=== PATIENT | female | born 1985 | race Caucasian/White ===

== ENCOUNTER → 2017-02-04 | Outpatient (CLI) | payer MEDICARE, OTHER ==
[2016-02-01 09:57] VITALS: BP 140/68
[~2017-02-04] MED LIST: ACET-704 PO; CYCL10TA2 PO; CYCL5TAB PO; DICY20TA3 PO; DICY20TA30 PO; ESOM40CA25 PO; FLUO20CA16 PO; METH5TAB2 PO; MIRT15TA PO; ONDA4TAB7 PO; OXCA600T PO; OXCA600T3 PO; PROM25AM6 IJ; PROM25SU32 PO; QUET200T4 PO; QUET300T5 PO; SUMA1TAB2 PO
--- NOTE | 2017-02-04 10:42 | RAD ---
Ultrasound renal Indication: Hematuria Technique: Grayscale and color Doppler ultrasound images of the kidneys obtained. Comparison: None Findings: Limited study due to body habitus. The cortical thickness is maintained bilaterally. The right kidney measures 10.7 x 4.3 x 6.8 cm without evidence of hydronephrosis. Color Doppler demonstrates evidence of blood flow in the renal hilum. The left kidney measures 10.5 x 3.9 x 4.9 cm without evidence of hydronephrosis. Color Doppler demonstrates evidence of blood flow in the renal hilum. Bladder is nondistended limiting evaluation. Impression: No hydronephrosis or suspicious renal lesion. If concern for nephrolithiasis or renal mass is high, please consider CT abdomen and pelvis.
== END | disposition home or self-care (01) ==
LOC: US 06:56
PROVIDERS: ATTEND Family Medicine
DX: R31.9 Hematuria, unspecified (principal)
CPT/HCPCS: 76770

== ENCOUNTER 2017-07-27 13:04 | Emergency (ER) | payer MEDICARE, OTHER ==
[2017-07-27 13:40] LABS: URINE HCG POC HCG NEGATIVE (Negative)
[2017-07-27] MEDS: IV NORMAL SALINE 1000ML BAG 1,000 ML IV ×2 (14:33)
[2017-07-27] MEDS: HALOPERIDOL LACTATE 5 MG/ML VIAL. IVP ×2 (14:33)
[2017-07-27] MEDS: diphenhydrAMINE 50 MG/ML VIAL IVP ×2 (14:33)
[2017-07-27 14:42] LABS: ADD MAN DIFF? NO
[2017-07-27 14:51] LABS: BASO % 0 % (0-3); EOS % 0 % (0-3); HEMATOCRIT 39.1 % (36.0-47.0); HEMOGLOBIN 13.3 g/dL (12.0-15.5); LYMPH # 1.5 x10^3/uL (1.0-4.8); LYMPH % 14 % (24-48); MEAN CORPUSCULAR HEMOGLOBIN 30 pg (25-35); MEAN CORPUSCULAR HGB CONC 34 g/dL (31-37); MEAN CORPUSCULAR VOLUME 89 fL (79-100); MONO # 0.5 x10^3/uL (0.0-1.1); MONO % 4 % (0-9); NEUT # 8.8 x10^3uL (1.8-7.7); NEUT % 82 % (31-73); PLATELET COUNT 232 x10^3/uL (140-400); RED CELL DISTRIBUTION WIDTH 13.8 % (11.5-14.5); WHITE BLOOD COUNT 10.8 x10^3/uL (4.0-11.0)
[2017-07-27 15:00] LABS: ANION GAP 12 (6-14); BLOOD UREA NITROGEN 13 mg/dL (7-20); BUN/CREATININE RATIO 22 (6-20); CALCIUM 8.9 mg/dL (8.5-10.1); CARBON DIOXIDE 23 mmol/L (21-32); CHLORIDE 101 mmol/L (98-107); CREATININE 0.6 mg/dL (0.6-1.0); GFR 115.1; GLUCOSE 108 mg/dL (70-99); POTASSIUM 3.9 mmol/L (3.5-5.1); SODIUM 136 mmol/L (136-145)
[2017-07-27 15:05] LABS: ALBUMIN/GLOBULIN RATIO 1.1 (1.0-1.7); ALK PHOS 65 U/L (46-116); ALT (SGPT) 20 U/L (14-59); AST (SGOT) 16 U/L (15-37); LIPASE 65 U/L (73-393); TOTAL BILIRUBIN 0.3 mg/dL (0.2-1.0); TOTAL PROTEIN 7.8 g/dL (6.4-8.2)
[2017-07-27 15:46] LABS: BILIRUBIN,URINE SMALL (NEG); CLARITY,URINE CLOUDY; GLUCOSE,URINE NEGATIVE (NEG); NITRITE,URINE NEGATIVE (NEG); PROTEIN,URINE 30 mg/dL (NEG-TRACE)
[2017-07-27 15:58] LABS: AMORPHOUS SEDIMENT,UR PRESENT /HPF; COLOR,URINE DK YELLOW
[2017-07-27 16:05] LABS: BACTERIA,URINE FEW /HPF (0-FEW); RBC,URINE OCC /HPF (0-2); SQUAMOUS EPITHELIAL CELL,UR MOD /LPF; WBC,URINE OCC /HPF (0-4)
[2017-07-27] MEDS: fentaNYL PF VIAL 100 MCG/2 ML VIAL IV ×2 (16:45)
[2017-07-27] MEDS: ONDANSETRON PF 4 MG/2 ML VIAL. IV ×2 (16:45)
== END 2017-07-27 18:40 | disposition home or self-care (01) ==
LOC: ER 13:04
DX: R10.30 Lower abdominal pain, unspecified (principal); G89.29 Other chronic pain; K21.9 Gastro-esophageal reflux disease without esophagitis; F41.9 Anxiety disorder, unspecified; G43.909 Migraine, unspecified, not intractable, without status migrainosus; F42.9 Obsessive-compulsive disorder, unspecified; Z90.49 Acquired absence of other specified parts of digestive tract; Z88.6 Allergy status to analgesic agent; Z88.1 Allergy status to other antibiotic agents; Z91.048 Other nonmedicinal substance allergy status
CPT/HCPCS: 36415; 76830; 76856; 80053; 81001; 81025; 83690; 85025; 87086; 96361; 96374; 96375; 99285-25; J1200; J1630; J2405; J3010; J7030

== ENCOUNTER 2017-08-08 17:59 | Emergency (ER) | payer MEDICARE, OTHER ==
[2017-08-08] MEDS: ACETAMINOPHEN/CODEINE 300/30MG TABLET. PO ×2 (18:28)
[2017-08-08] MEDS: DIPHTH,PERTUSS(ACELL),TET TOX 0.5 ML DISP.SYRIN. VAX IM ×2 (18:39)
== END 2017-08-08 18:42 | disposition home or self-care (01) ==
LOC: ER 17:59
DX: S61.431A Puncture wound without foreign body of right hand, initial encounter (principal); F41.9 Anxiety disorder, unspecified; F31.9 Bipolar disorder, unspecified; K21.9 Gastro-esophageal reflux disease without esophagitis; G43.909 Migraine, unspecified, not intractable, without status migrainosus; G89.29 Other chronic pain; K58.9 Irritable bowel syndrome, unspecified; F42.8 Other obsessive-compulsive disorder; Z90.49 Acquired absence of other specified parts of digestive tract; Z88.1 Allergy status to other antibiotic agents; Z88.6 Allergy status to analgesic agent; Z91.048 Other nonmedicinal substance allergy status; W45.0XXA Nail entering through skin, initial encounter; Y93.E5 Activity, floor mopping and cleaning; Y92.89 Other specified places as the place of occurrence of the external cause; Y99.8 Other external cause status
CPT/HCPCS: 73130; 90471; 90715; 99284-25

== ENCOUNTER → 2017-09-01 | Outpatient (CLI) | payer MEDICARE, OTHER | END | disposition home or self-care (01) | LOC: KCIC US 09:57 | DX: N63.10 Unspecified lump in the right breast, unspecified quadrant (principal) | CPT/HCPCS: 76641 ==

== ENCOUNTER 2019-03-09 10:16 | Inpatient (IN) | payer MEDICARE, OTHER ==
[~2019-03-09] VITALS: Ht 162.6 cm; Wt 99.8 kg
[~2019-03-09 10:16] MED LIST changes: +CEPH500T PO; +HYDR-3164 PO; -OXCA600T PO; +OXCA600T9 PO
[2019-03-09 11:00] VITALS: BP 134/76
[2019-03-09] MEDS ORDERED: MORPHINE SULFATE 10 MG/ML VIAL. IV ONE (11:00)
[2019-03-09] MEDS ORDERED: IV NORMAL SALINE 1000ML BAG 1,000 ML IV SCH (11:00)
[2019-03-09] MEDS ORDERED: ONDANSETRON PF 4 MG/2 ML VIAL. IV PRN (11:00)
[2019-03-09] MEDS ORDERED: ESOM40CA PO (11:32)
[2019-03-09] MEDS ORDERED: CYCL10TA2 PO (11:32)
[2019-03-09] MEDS ORDERED: ZOLP5TAB PO (11:32)
[2019-03-09 12:42] LABS: BASO % 0 % (0-3); EOS # 0.1 x10^3/uL (0.0-0.7); EOS % 1 % (0-3); HEMATOCRIT 34.4 % (36.0-47.0); HEMOGLOBIN 11.8 g/dL (12.0-15.5); LYMPH # 2.1 x10^3/uL (1.0-4.8); LYMPH % 24 % (24-48); MEAN CORPUSCULAR HEMOGLOBIN 29 pg (25-35); MEAN CORPUSCULAR HGB CONC 34 g/dL (31-37); MEAN CORPUSCULAR VOLUME 85 fL (79-100); MONO # 0.4 x10^3/uL (0.0-1.1); MONO % 5 % (0-9); NEUT # 6.1 x10^3/uL (1.8-7.7); NEUT % 69 % (31-73); PLATELET COUNT 215 x10^3/uL (140-400); RED BLOOD COUNT 4.08 x10^6/uL (3.50-5.40); RED CELL DISTRIBUTION WIDTH 13.8 % (11.5-14.5); WHITE BLOOD COUNT 8.8 x10^3/uL (4.0-11.0)
[2019-03-09] MEDS: IV NORMAL SALINE 1000ML BAG 1,000 ML IV SCH ×2 (12:44→22:23)
[2019-03-09] MEDS: PIPERACILLIN/TAZOBACTAM 4.5 GM in IV NORMAL SALINE 100ML 100 ML IV SCH ×2 (12:45→17:21)
[2019-03-09 13:04] LABS: ALBUMIN 3.4 g/dL (3.4-5.0); ALBUMIN/GLOBULIN RATIO 0.8 (1.0-1.7); CALCIUM 9.1 mg/dL (8.5-10.1); CREATININE 0.7 mg/dL (0.6-1.0); GFR 95.8; POTASSIUM 3.6 mmol/L (3.5-5.1); TOTAL BILIRUBIN 0.2 mg/dL (0.2-1.0); TOTAL PROTEIN 7.5 g/dL (6.4-8.2)
--- NOTE | 2019-03-09 13:34 | PDOC1 ---
H & P. HPI: Ms. Cat is a 33 yo female with PMH of Bipolar, irritable bowel syndrome, chronic pain, currently on methadone for maintenance, GERD and nicotine dependence, who presented to clinic today for 2-3 day history of RUQ pain, fever, chills, nausea, decreased appetite. Tmax was 101 on 03/07/19. She notes that pain is dull, intermittently much more severe, worsened by eating, improved by avoiding food. Seems colicky in nature, radiates around to the back. She denies diarrhea, vomiting, dysuria, hematura, cough. Pain is 5/10 usually and becomes 10/10 at times. ROS: Constitutional: Admits fever, fatigue, chills HEENT: Denies sore throat, vision changes Cardio: Denies chest pain, dyspnea with exertion, syncope, palpitations, edema Pulmonary: Denies shortness of breath, cough, wheezing GI: Admits RUQ pain, nausea, denies vomiting, diarrhea, constipation : Denies dysuria, frequency, urgency, incontinence, hematuria Skin: Denies new lesions Neuro: Denies weakness, paresthesias PMH: As above FAMILY HX: Patient is adopted. SOCIAL HX: Long time smoker. Denies alcohol and recreational drug use. Takes methadone. SURGICAL HX: s/p appendectomy MEDS: Reviewed and reconciled ALLERGIES: Reviewed PE: Alert, oriented, appears in pain EOMI, sclera non-icteric Neck supple RRR, no murmur CTAB, no wheezes, crackles or rhonchi Soft, tender in RUQ, + ramsey's sign, some tenderness in epigastrium as well, otherwise nontender, ND, diminished bowel sounds, no rebound, guarding. No edema, cyanosis. Normal capillary refill. Calm, cooperative, mood/affect within normal limits ASSESSMENT & PLAN: RUQ abdominal pain Fever Bipolar disorder IBS Chronic pain, on methadone chronically GERD Nicotine dependence Get labs, imaging, surgery consult for possible acute cholecystitis IVFs NPO pending work up Pain control DEMETRI Copeland MD Mar 09, 2019 13:34
[2019-03-09 14:03] LABS: BILIRUBIN,URINE NEGATIVE (NEG); CLARITY,URINE CLEAR; COLOR,URINE AMBER; NITRITE,URINE NEGATIVE (NEG); PROTEIN,URINE NEGATIVE (NEG-TRACE); UROBILINOGEN,URINE 0.2 mg/dL (0.2 mg/dL)
[2019-03-09 14:24] LABS: AMORPHOUS SEDIMENT,UR PRESENT /HPF; BACTERIA,URINE 0 /HPF (0-FEW); SQUAMOUS EPITHELIAL CELL,UR MOD /LPF
[2019-03-09 14:25] LABS: U PREG PATIENT NEGATIVE (NEG)
[2019-03-09] MEDS ORDERED: IOHEXOL 300 MG/ML 100ML VIAL. IV ONE (14:30)
[2019-03-09] MEDS ORDERED: IOHEXOL 240 MG/ML 50ML VIAL. PO ONE (14:30)
[2019-03-09] MEDS ORDERED: CONTRAST GIVEN. MC PRN (14:45)
--- NOTE | 2019-03-09 14:52 | NUR ---
Discharge Note: ELISABETH SEGOVIA [facility] Discharge instructions and discharge home medications reviewed with Patient and a copy given. All questions have been answered and understanding verbalized. The following instructions and handouts were given: Patient given education regarding new medication. Discontinued lines and drains: Iv removed per protocol. Patient discharged home via cab pass. Addendum: 03/09/19 at 1453 by MAR PATEL RN disregard previous note. Wrong patient.
[2019-03-09 15:00] VITALS: BP 130/82
[2019-03-09] MEDS: MORPHINE SULFATE 10 MG/ML VIAL. IV PRN ×3 (15:27→23:49)
--- NOTE | 2019-03-09 16:42 | RAD ---
Examination: CT ABD PELV W/ORAL IV CONTRAST History: Abdominal pain Comparison/Correlation: 09/12/2013 CT abdomen and pelvis with contrast Findings: Axial images of the abdomen and pelvis were obtained following IV and oral contrast. Mild bibasilar linear atelectasis is present. Liver is unremarkable. Spleen is unremarkable. Adrenal glands are normal. Kidneys unremarkable. Pancreas is unremarkable. Multiple small calculi present within the gallbladder. Large quantity of stool is present in the colon. No extraluminal gas. No inflammatory change about the cecum. Surgical clips and suture material about the cecum noted. Appendix is not delineated. Correlate with surgical history. No ascites or pelvic free fluid. Uterus is unremarkable. Urinary bladder is unremarkable. Few mesenteric lymph nodes are suggestive but not enlarged. Impression: No obstruction or acute inflammatory process. Cholelithiasis. Large quantity of stool in the colon. PQRS Compliance Statement: One or more of the following individualized dose reduction techniques were utilized for this examination: 1. Automated exposure control 2. Adjustment of the mA and/or kV according to patient size 3. Use of iterative reconstruction technique Electronically signed by: Sunny Sims MD (03/09/2019 4:38 PM) [facility]
--- NOTE | 2019-03-09 17:03 | PDOC2 ---
CONSULT Date of Consult Date of Consult DATE: 03/09/19 TIME: 16:56 Reason for Consult Reason for Consult: possible cholecystitis Referring Physician Referring Physician: Dr Benitez Identification/Chief Complaint Chief Complaint RUQ pain Source Source: Chart review, Patient History of Present Illness Reason for Visit: Ms Cat is a 33 yo female smoker with hx of IBD and some constipation. The last few days she has had RUQ pain with fever. We are asked to see her for possible acute cholecystitis Past Medical History GI: GERD, Irritable bowel disease Psych: Bipolar Past Surgical History Past Surgical History: Appendectomy, Other (l/s for ovarian cysts) Family History Family History: Adopted Social History 1 pack per day ALCOHOL: none Drugs: None Current Medications Current Medications Current Medications Ondansetron HCl (Zofran) 4 mg PRN Q6HRS PRN IV NAUSEA/VOMITING Last administered on 03/09/19 15:26; Start 03/09/19 at 11:00 Morphine Sulfate (Morphine Sulfate) 5 mg PRN Q3HRS ONCE IV Last administered on 03/09/19at 12:44; Start 03/09/19 at 11:00; Stop 03/09/19 at 11:09; Status DC Piperacillin Sod/ Tazobactam Sod 4.5 gm/Sodium Chloride 100 ml @ 200 mls/hr Q6HRS IV Last administered on 03/09/19at 12:45; Start 03/09/19 at 12:00 Sodium Chloride 1,000 ml @ 125 mls/hr 1X IV ; Start 03/09/19 at 11:00; Status Cancel Morphine Sulfate (Morphine Sulfate) 5 mg PRN Q3HRS PRN IV PAIN Last administered on 03/09/19at 15:27; Start 03/09/19 at 11:45 Sodium Chloride 1,000 ml @ 125 mls/hr Q8H IV Last administered on 03/09/19 12:44; Start 03/09/19 at 11:45 Iohexol (Omnipaque 240 Mg/ml) 30 ml 1X ONCE PO Last administered on 03/09/19at 14:30; Start 03/09/19 at 14:30; Stop 03/09/19 at 14:38; Status DC Iohexol (Omnipaque 300 Mg/ml) 75 ml 1X ONCE IV Last administered on 03/09/19at 14:30; Start 03/09/19 at 14:30; Stop 03/09/19 at 14:38; Status DC Info (CONTRAST GIVEN -- Rx MONITORING) 1 each PRN DAILY PRN MC SEE COMMENTS; Start 03/09/19 at 14:45; Stop 03/11/19 at 14:44 Methadone HCl (Dolophine) 125 mg HS PO ; Start 03/09/19 at 21:00; Status UNV Nicotine (Nicoderm Cq 21mg) 1 patch DAILY TD ; Start 03/09/19 at 17:00 Active Scripts Active Reported Nexium Capsule (Esomeprazole Magnesium) 40 Mg Capsule.dr 44 Mg PO DAILYAC Cyclobenzaprine Hcl 10 Mg Tablet 1 Tab PO TID PRN Ambien (Zolpidem Tartrate) 5 Mg Tablet 5 Mg PO HS PRN Prozac (Fluoxetine Hcl) 20 Mg Capsule 2 Cap PO DAILY Phenergan (Promethazine HCl) 25 Mg Supp.rect 25 Mg PO TID Zofran (Ondansetron Hcl) 4 Mg Tablet 1 Tab PO TID Methadone Hcl 5 Mg Tablet 125 Mg PO HS Seroquel (Quetiapine Fumarate) 300 Mg Tablet 1 Tab PO DAILYWLUN Trileptal (Oxcarbazepine) 600 Mg Tablet 2 Tab PO HS Dicyclomine Hcl 20 Mg Tablet 1 Tab PO TID Allergies Allergies: Coded Allergies: doxycycline (Verified Allergy, Intermediate, NAUSEA, VOMITING, 09/12/13) ibuprofen (Verified Allergy, Intermediate, nose bleed, 07/16/14) adhesive (Verified Allergy, Mild, rash, 03/09/19) Patient states not a problem unless left on for a long period of time. ROS General: YES: Chills, Other (fever) Gastrointestinal: Yes Nausea, Yes Abdominal Pain, Yes Constipation Physical Exam General: Alert, No acute distress HEENT: Atraumatic Lungs: Normal air movement Heart: Regular rate Abdomen: Soft, Other (minimally TTP in the RUQ) Skin: Other (warm, dry) Neuro: Other (tremor) Vitals VITALS Vital Signs Date Time Temp Pulse Resp B/P (MAP) Pulse Ox O2 Delivery O2 Flow Rate FiO2 03/09/19 15:57 Room Air 03/09/19 11:00 98.2 106 18 134/76 (95) 98 98.2 Labs Labs Laboratory Tests Test 03/09/19 12:03/09/19 12:45 White Blood Count 8.8 x10^3/uL (4.0-11.0) Red Blood Count 4.08 x10^6/uL (3.50-5.40) Hemoglobin 11.8 g/dL (12.0-15.5) Hematocrit 34.4 % (36.0-47.0) Mean Corpuscular Volume 85 fL (79-100) Mean Corpuscular Hemoglobin 29 pg (25-35) Mean Corpuscular Hemoglobin Concent 34 g/dL (31-37) Red Cell Distribution Width 13.8 % (11.5-14.5) Platelet Count 215 x10^3/uL (140-400) Neutrophils (%) (Auto) 69 % (31-73) Lymphocytes (%) (Auto) 24 % (24-48) Monocytes (%) (Auto) 5 % (0-9) Eosinophils (%) (Auto) 1 % (0-3) Basophils (%) (Auto) 0 % (0-3) Neutrophils # (Auto) 6.1 x10^3/uL (1.8-7.7) Lymphocytes # (Auto) 2.1 x10^3/uL (1.0-4.8) Monocytes # (Auto) 0.4 x10^3/uL (0.0-1.1) Eosinophils # (Auto) 0.1 x10^3/uL (0.0-0.7) Basophils # (Auto) 0.0 x10^3/uL (0.0-0.2) Sodium Level 137 mmol/L (136-145) Potassium Level 3.6 mmol/L (3.5-5.1) Chloride Level 104 mmol/L (98-107) Carbon Dioxide Level 22 mmol/L (21-32) Anion Gap 11 (6-14) Blood Urea Nitrogen 7 mg/dL (7-20) Creatinine 0.7 mg/dL (0.6-1.0) Estimated GFR (Cockcroft-Gault) 95.8 BUN/Creatinine Ratio 10 (6-20) Glucose Level 87 mg/dL (70-99) Calcium Level 9.1 mg/dL (8.5-10.1) Total Bilirubin 0.2 mg/dL (0.2-1.0) Aspartate Amino Transf (AST/SGOT) 17 U/L (15-37) Alanine Aminotransferase (ALT/SGPT) 19 U/L (14-59) Alkaline Phosphatase 84 U/L (46-116) Total Protein 7.5 g/dL (6.4-8.2) Albumin 3.4 g/dL (3.4-5.0) Albumin/Globulin Ratio 0.8 (1.0-1.7) Lipase 49 U/L (73-393) Urine Collection Type Unknown Urine Color Janell Urine Clarity Clear Urine pH 6.0 Urine Specific [place] >=1.030 Urine Protein Negative mg/dL (NEG-TRACE) Urine Glucose (UA) Negative mg/dL (NEG) Urine Ketones (Stick) Negative mg/dL (NEG) Urine Blood Negative (NEG) Urine Nitrite Negative (NEG) Urine Bilirubin Negative (NEG) Urine Urobilinogen Dipstick 0.2 mg/dL (0.2 mg/dL) Urine Leukocyte Esterase Negative (NEG) Urine RBC 1-2 /HPF (0-2) Urine WBC 1-4 /HPF (0-4) Urine Squamous Epithelial Cells Mod /LPF Urine Amorphous Sediment Present /HPF Urine Bacteria 0 /HPF (0-FEW) Urine Mucus Marked /LPF Urine Test Negative (NEG) Laboratory Tests Test 03/09/19 12:09 03/09/19 12:45 White Blood Count 8.8 x10^3/uL (4.0-11.0) Red Blood Count 4.08 x10^6/uL (3.50-5.40) Hemoglobin 11.8 g/dL (12.0-15.5) Hematocrit 34.4 % (36.0-47.0) Mean Corpuscular Volume 85 fL (79-100) Mean Corpuscular Hemoglobin 29 pg (25-35) Mean Corpuscular Hemoglobin Concent 34 g/dL (31-37) Red Cell Distribution Width 13.8 % (11.5-14.5) Platelet Count 215 x10^3/uL (140-400) Neutrophils (%) (Auto) 69 % (31-73) Lymphocytes (%) (Auto) 24 % (24-48) Monocytes (%) (Auto) 5 % (0-9) Eosinophils (%) (Auto) 1 % (0-3) Basophils (%) (Auto) 0 % (0-3) Neutrophils # (Auto) 6.1 x10^3/uL (1.8-7.7) Lymphocytes # (Auto) 2.1 x10^3/uL (1.0-4.8) Monocytes # (Auto) 0.4 x10^3/uL (0.0-1.1) Eosinophils # (Auto) 0.1 x10^3/uL (0.0-0.7) Basophils # (Auto) 0.0 x10^3/uL (0.0-0.2) Sodium Level 137 mmol/L (136-145) Potassium Level 3.6 mmol/L (3.5-5.1) Chloride Level 104 mmol/L (98-107) Carbon Dioxide Level 22 mmol/L (21-32) Anion Gap 11 (6-14) Blood Urea Nitrogen 7 mg/dL (7-20) Creatinine 0.7 mg/dL (0.6-1.0) Estimated GFR (Cockcroft-Gault) 95.8 BUN/Creatinine Ratio 10 (6-20) Glucose Level 87 mg/dL (70-99) Calcium Level 9.1 mg/dL (8.5-10.1) Total Bilirubin 0.2 mg/dL (0.2-1.0) Aspartate Amino Transf (AST/SGOT) 17 U/L (15-37) Alanine Aminotransferase (ALT/SGPT) 19 U/L (14-59) Alkaline Phosphatase 84 U/L (46-116) Total Protein 7.5 g/dL (6.4-8.2) Albumin 3.4 g/dL (3.4-5.0) Albumin/Globulin Ratio 0.8 (1.0-1.7) Lipase 49 U/L (73-393) Urine Collection Type Unknown Urine Color Janell Urine Clarity Clear Urine pH 6.0 Urine Specific [place] >=1.030 Urine Protein Negative mg/dL (NEG-TRACE) Urine Glucose (UA) Negative mg/dL (NEG) Urine Ketones (Stick) Negative mg/dL (NEG) Urine Blood Negative (NEG) Urine Nitrite Negative (NEG) Urine Bilirubin Negative (NEG) Urine Urobilinogen Dipstick 0.2 mg/dL (0.2 mg/dL) Urine Leukocyte Esterase Negative (NEG) Urine RBC 1-2 /HPF (0-2) Urine WBC 1-4 /HPF (0-4) Urine Squamous Epithelial Cells Mod /LPF Urine Amorphous Sediment Present /HPF Urine Bacteria 0 /HPF (0-FEW) Urine Mucus Marked /LPF Urine Test Negative (NEG) Images Images CT scan just done reviewed with the radiologist Assessment/Plan Assessment/Plan RUQ pain, a little better BIPOLAR GERD IBD with constipation tobacco abuse chronic pain on methadone clears tonoc til midnight then NPO for a HIDA scan in the morning further surg recs PND those results will follow with you Thanks for consult BERNABE ALARCON MD Mar 09, 2019 17:03
[2019-03-09] MEDS: NICOTINE 21MG PATCH. TD SCH (17:21)
[2019-03-09 19:00] VITALS: BP 113/71
[2019-03-09] MEDS: METHADONE (DAILY MAINT DOSE) 100 MG/100 ML SOLUTION PO SCH (21:35)
[2019-03-09 23:00] VITALS: BP 106/68
[2019-03-10] MEDS: PIPERACILLIN/TAZOBACTAM 4.5 GM in IV NORMAL SALINE 100ML 100 ML IV SCH ×4 (00:27→17:49)
[2019-03-10 03:00] VITALS: BP 119/65
[2019-03-10] MEDS: MORPHINE SULFATE 10 MG/ML VIAL. IV PRN (05:20)
[2019-03-10 07:00] VITALS: BP 114/75
[2019-03-10] MEDS: fentaNYL PF VIAL 100 MCG/2 ML VIAL IV PRN ×3 (08:43→20:46)
[2019-03-10] MEDS: IV NORMAL SALINE 1000ML BAG 1,000 ML IV SCH ×3 (08:48→20:44)
[2019-03-10] MEDS: NICOTINE 21MG PATCH. TD SCH (08:51)
--- NOTE | 2019-03-10 09:07 | PDOC ---
SUBJECTIVE Subjective Still having pain. Getting HIDA today. OBJECTIVE Objective Reviewe.d Vital Signs Vital Signs Date Time Temp Pulse Resp B/P (MAP) Pulse Ox O2 Delivery O2 Flow Rate FiO2 03/10/19 08:43 19 94 Room Air 03/10/19 07:00 98.0 76 18 114/75 (88) 97 Room Air 98.0 03/10/19 05:20 20 Room Air 03/10/19 03:00 97.8 79 20 119/65 (83) 97 Room Air 97.8 03/10/19 00:19 20 Room Air 03/09/19 23:49 20 Room Air 03/09/19 23:00 97.9 91 20 106/68 (81) 96 Room Air 97.9 03/09/19 20:00 Room Air 03/09/19 19:56 20 Room Air 03/09/19 19:26 Room Air 03/09/19 19:00 97.9 83 20 113/71 (85) 96 Room Air 97.9 03/09/19 15:57 Room Air 03/09/19 15:27 Room Air 03/09/19 15:00 97.9 81 18 130/82 (98) 99 Room Air 97.9 03/09/19 13:14 Room Air 03/09/19 12:44 Room Air 03/09/19 12:17 Room Air 03/09/19 11:00 98.2 106 18 134/76 (95) 98 Room Air 98.2 I & O Intake and Output 03/10/19 07:00 Intake Total 400 ml Balance 400 ml Intake Oral 200 ml IV Total 200 ml # Voids 3 PHYSICAL EXAM Physical Exam Alert, oriented, appears in pain EOMI, sclera non-icteric Neck supple RRR, no murmur CTAB, no wheezes, crackles or rhonchi Soft, tender in RUQ, + ramsey's sign No edema, cyanosis. Normal capillary refill. Calm, cooperative, mood/affect within normal limits ASSESSMENT/PLAN Assessment/Plan RUQ abdominal pain, gallstones on CT Fever prior to admission Bipolar disorder IBS Chronic pain, on methadone chronically GERD Nicotine dependence Plan for HIDA today Cont zosyn until bld cx neg COMMENT Lab Laboratory Tests Test 03/09/19 12:09 03/09/19 12:45 White Blood Count 8.8 x10^3/uL (4.0-11.0) Red Blood Count 4.08 x10^6/uL (3.50-5.40) Hemoglobin 11.8 g/dL (12.0-15.5) Hematocrit 34.4 % (36.0-47.0) Mean Corpuscular Volume 85 fL (79-100) Mean Corpuscular Hemoglobin 29 pg (25-35) Mean Corpuscular Hemoglobin Concent 34 g/dL (31-37) Red Cell Distribution Width 13.8 % (11.5-14.5) Platelet Count 215 x10^3/uL (140-400) Neutrophils (%) (Auto) 69 % (31-73) Lymphocytes (%) (Auto) 24 % (24-48) Monocytes (%) (Auto) 5 % (0-9) Eosinophils (%) (Auto) 1 % (0-3) Basophils (%) (Auto) 0 % (0-3) Neutrophils # (Auto) 6.1 x10^3/uL (1.8-7.7) Lymphocytes # (Auto) 2.1 x10^3/uL (1.0-4.8) Monocytes # (Auto) 0.4 x10^3/uL (0.0-1.1) Eosinophils # (Auto) 0.1 x10^3/uL (0.0-0.7) Basophils # (Auto) 0.0 x10^3/uL (0.0-0.2) Sodium Level 137 mmol/L (136-145) Potassium Level 3.6 mmol/L (3.5-5.1) Chloride Level 104 mmol/L (98-107) Carbon Dioxide Level 22 mmol/L (21-32) Anion Gap 11 (6-14) Blood Urea Nitrogen 7 mg/dL (7-20) Creatinine 0.7 mg/dL (0.6-1.0) Estimated GFR (Cockcroft-Gault) 95.8 BUN/Creatinine Ratio 10 (6-20) Glucose Level 87 mg/dL (70-99) Calcium Level 9.1 mg/dL (8.5-10.1) Total Bilirubin 0.2 mg/dL (0.2-1.0) Aspartate Amino Transf (AST/SGOT) 17 U/L (15-37) Alanine Aminotransferase (ALT/SGPT) 19 U/L (14-59) Alkaline Phosphatase 84 U/L (46-116) Total Protein 7.5 g/dL (6.4-8.2) Albumin 3.4 g/dL (3.4-5.0) Albumin/Globulin Ratio 0.8 (1.0-1.7) Lipase 49 U/L (73-393) Urine Collection Type Unknown Urine Color Janell Urine Clarity Clear Urine pH 6.0 Urine Specific [place] >=1.030 Urine Protein Negative mg/dL (NEG-TRACE) Urine Glucose (UA) Negative mg/dL (NEG) Urine Ketones (Stick) Negative mg/dL (NEG) Urine Blood Negative (NEG) Urine Nitrite Negative (NEG) Urine Bilirubin Negative (NEG) Urine Urobilinogen Dipstick 0.2 mg/dL (0.2 mg/dL) Urine Leukocyte Esterase Negative (NEG) Urine RBC 1-2 /HPF (0-2) Urine WBC 1-4 /HPF (0-4) Urine Squamous Epithelial Cells Mod /LPF Urine Amorphous Sediment Present /HPF Urine Bacteria 0 /HPF (0-FEW) Urine Mucus Marked /LPF Urine Test Negative (NEG) DEMETRI CALDERÓN MD Mar 10, 2019 09:07
[2019-03-10 11:00] VITALS: BP 144/94
--- NOTE | 2019-03-10 12:54 | PDOC ---
SURGICAL PROGRESS NOTE Subjective main complaint is MYLES no emesis pain is better today Vital Signs Vital Signs Date Time Temp Pulse Resp B/P (MAP) Pulse Ox O2 Delivery O2 Flow Rate FiO2 03/10/19 11:00 97.9 91 20 144/94 (111) 95 Room Air 97.9 I&O Intake and Output 03/10/19 06:59 Intake Total 400 ml Balance 400 ml Intake Oral 200 ml IV Total 200 ml # Voids 3 General: Alert, Oriented X3, Cooperative, No acute distress Abdomen: Soft, No tenderness Labs Laboratory Tests Test 03/09/19 12:09 03/09/19 12:45 White Blood Count 8.8 x10^3/uL (4.0-11.0) Red Blood Count 4.08 x10^6/uL (3.50-5.40) Hemoglobin 11.8 g/dL (12.0-15.5) Hematocrit 34.4 % (36.0-47.0) Mean Corpuscular Volume 85 fL (79-100) Mean Corpuscular Hemoglobin 29 pg (25-35) Mean Corpuscular Hemoglobin Concent 34 g/dL (31-37) Red Cell Distribution Width 13.8 % (11.5-14.5) Platelet Count 215 x10^3/uL (140-400) Neutrophils (%) (Auto) 69 % (31-73) Lymphocytes (%) (Auto) 24 % (24-48) Monocytes (%) (Auto) 5 % (0-9) Eosinophils (%) (Auto) 1 % (0-3) Basophils (%) (Auto) 0 % (0-3) Neutrophils # (Auto) 6.1 x10^3/uL (1.8-7.7) Lymphocytes # (Auto) 2.1 x10^3/uL (1.0-4.8) Monocytes # (Auto) 0.4 x10^3/uL (0.0-1.1) Eosinophils # (Auto) 0.1 x10^3/uL (0.0-0.7) Basophils # (Auto) 0.0 x10^3/uL (0.0-0.2) Sodium Level 137 mmol/L (136-145) Potassium Level 3.6 mmol/L (3.5-5.1) Chloride Level 104 mmol/L (98-107) Carbon Dioxide Level 22 mmol/L (21-32) Anion Gap 11 (6-14) Blood Urea Nitrogen 7 mg/dL (7-20) Creatinine 0.7 mg/dL (0.6-1.0) Estimated GFR (Cockcroft-Gault) 95.8 BUN/Creatinine Ratio 10 (6-20) Glucose Level 87 mg/dL (70-99) Calcium Level 9.1 mg/dL (8.5-10.1) Total Bilirubin 0.2 mg/dL (0.2-1.0) Aspartate Amino Transf (AST/SGOT) 17 U/L (15-37) Alanine Aminotransferase (ALT/SGPT) 19 U/L (14-59) Alkaline Phosphatase 84 U/L (46-116) Total Protein 7.5 g/dL (6.4-8.2) Albumin 3.4 g/dL (3.4-5.0) Albumin/Globulin Ratio 0.8 (1.0-1.7) Lipase 49 U/L (73-393) Urine Collection Type Unknown Urine Color Janell Urine Clarity Clear Urine pH 6.0 Urine Specific [place] >=1.030 Urine Protein Negative mg/dL (NEG-TRACE) Urine Glucose (UA) Negative mg/dL (NEG) Urine Ketones (Stick) Negative mg/dL (NEG) Urine Blood Negative (NEG) Urine Nitrite Negative (NEG) Urine Bilirubin Negative (NEG) Urine Urobilinogen Dipstick 0.2 mg/dL (0.2 mg/dL) Urine Leukocyte Esterase Negative (NEG) Urine RBC 1-2 /HPF (0-2) Urine WBC 1-4 /HPF (0-4) Urine Squamous Epithelial Cells Mod /LPF Urine Amorphous Sediment Present /HPF Urine Bacteria 0 /HPF (0-FEW) Urine Mucus Marked /LPF Urine Test Negative (NEG) Problem List await HIDA results TEO STALLWORTH APRN Mar 10, 2019 12:54
[2019-03-10] MEDS ORDERED: ZOLPIDEM 5 MG TABLET. PO PRN (13:45)
[2019-03-10] MEDS ORDERED: CYCLOBENZAPRINE 10 MG TABLET. PO PRN (13:45)
[2019-03-10] MEDS ORDERED: PROMETHAZINE 25 MG SUPP.RECT. RC PRN (13:45)
[2019-03-10] MEDS ORDERED: QUEtiapine 100 MG TABLET. PO SCH (14:00)
[2019-03-10 15:00] VITALS: BP 136/87
[2019-03-10] MEDS: PANTOPRAZOLE 40 MG TABLET.DR. PO SCH (16:30)
[2019-03-10] MEDS: ONDANSETRON ODT 4 MG TAB.RAPDIS. PO SCH ×2 (16:30→20:47)
[2019-03-10] MEDS: FLUoxetine HCL 20 MG CAPSULE PO SCH (16:31)
[2019-03-10] MEDS: DICYCLOMINE HCL 10 MG CAPSULE PO SCH ×2 (16:31→20:46)
[2019-03-10 19:00] VITALS: BP 130/82
[2019-03-10] MEDS: METHADONE (DAILY MAINT DOSE) 100 MG/100 ML SOLUTION PO SCH (20:52)
[2019-03-10] MEDS ORDERED: OXcarbazepine 300 MG TABLET PO SCH (21:00)
[2019-03-10 23:00] VITALS: BP 99/66
[2019-03-11] MEDS: PIPERACILLIN/TAZOBACTAM 4.5 GM in IV NORMAL SALINE 100ML 100 ML IV SCH ×2 (00:03→05:55)
[2019-03-11 03:05] VITALS: BP 122/78
[2019-03-11] MEDS: fentaNYL PF VIAL 100 MCG/2 ML VIAL IV PRN ×2 (03:21→07:58)
[2019-03-11] MEDS: IV NORMAL SALINE 1000ML BAG 1,000 ML IV SCH (05:55)
[2019-03-11 07:00] VITALS: BP 139/87
--- NOTE | 2019-03-11 08:15 | PDOC ---
SUBJECTIVE Subjective Still having pain. HIDA results pending. OBJECTIVE Objective Reviewed. Vital Signs Vital Signs Date Time Temp Pulse Resp B/P (MAP) Pulse Ox O2 Delivery O2 Flow Rate FiO2 03/11/19 07:58 Room Air 03/11/19 07:00 98.1 91 18 139/87 (104) 99 Room Air 98.1 03/11/19 04:02 Room Air 03/11/19 03:21 Room Air 03/11/19 03:05 97.7 90 18 122/78 (93) 100 Room Air 97.7 03/10/19 23:00 97.9 81 18 99/66 (77) 95 Room Air 97.9 03/10/19 21:18 Room Air 03/10/19 20:46 Room Air 03/10/19 20:00 Room Air 03/10/19 19:00 98.1 84 18 130/82 (98) 97 Room Air 98.1 03/10/19 17:20 20 92 Room Air 03/10/19 16:44 20 94 Room Air 03/10/19 15:00 98.0 84 18 136/87 (103) 99 Room Air 98.0 03/10/19 11:00 97.9 91 20 144/94 (111) 95 Room Air 97.9 03/10/19 09:15 19 94 Room Air 03/10/19 08:43 19 94 Room Air I & O Intake and Output 03/11/19 07:00 Intake Total 550 ml Output Total 1700 ml Balance -1150 ml Intake Oral 550 ml Output Urine Total 1700 ml PHYSICAL EXAM Physical Exam Alert, oriented, appears in pain EOMI, sclera non-icteric Neck supple RRR, no murmur CTAB, no wheezes, crackles or rhonchi Soft, tender in RUQ, + ramsey's sign No edema, cyanosis. Normal capillary refill. Calm, cooperative, mood/affect within normal limits ASSESSMENT/PLAN Assessment/Plan RUQ abdominal pain, gallstones on CT Fever prior to admission Bipolar disorder IBS Chronic pain, on methadone chronically GERD Nicotine dependence Await HIDA results and plan per surgery DEMETRI CALDERÓN MD Mar 11, 2019 08:15
--- NOTE | 2019-03-11 08:51 | PDOC3 ---
Discharge Summary Date of Admission: Mar 09, 2019 Date of Discharge: Mar 11, 2019 Admitting Diagnosis comment: Right upper quadrant pain, fever, concern for acute cholecystitis FINAL DIAGNOSIS Cholelithiasis Brief Hospital Course Ms. Cat is a 33 yo female with PMH of Bipolar, irritable bowel syndrome, chronic pain, currently on methadone for maintenance, GERD and nicotine dependence, who was admitted from clinic for 2-3 day history of RUQ pain, fever, chills, nausea, decreased appetite. Tmax was 101 on 03/07/19. She noted that pain is dull, intermittently much more severe, worsened by eating, improved by avoiding food. Seems colicky in nature, radiates around to the back. She denied diarrhea, vomiting, dysuria, hematura, cough. Pain is 5/10 usually and becomes 10/10 at times. Labs and imaging were remarkable for cholelithiasis and no signs of acute cholecystitis. Surgery was consulted and a HIDA scan was performed, the results of which are still pending. The patient has had improvement in her pain and is requesting discharge with outpatient follow-up with surgery to discuss possible cholecystectomy in the future. No home medication changes have been made. CONDITION AT DISCHARGE: Improved, Stable Discharge Medications Active Reported Nexium Capsule (Esomeprazole Magnesium) 40 Mg Capsule.dr 44 Mg PO DAILYAC Cyclobenzaprine Hcl 10 Mg Tablet 1 Tab PO TID PRN Ambien (Zolpidem Tartrate) 5 Mg Tablet 5 Mg PO HS PRN Prozac (Fluoxetine Hcl) 20 Mg Capsule 2 Cap PO DAILY Phenergan (Promethazine HCl) 25 Mg Supp.rect 25 Mg PO TID Zofran (Ondansetron Hcl) 4 Mg Tablet 1 Tab PO TID Methadone Hcl 5 Mg Tablet 125 Mg PO HS Seroquel (Quetiapine Fumarate) 300 Mg Tablet 1 Tab PO DAILYWLUN Trileptal (Oxcarbazepine) 600 Mg Tablet 2 Tab PO HS Dicyclomine Hcl 20 Mg Tablet 1 Tab PO TID Vital Signs Vital Signs Date Time Temp Pulse Resp B/P (MAP) Pulse Ox O2 Delivery O2 Flow Rate FiO2 03/11/19 07:58 Room Air 03/11/19 07:00 98.1 91 18 139/87 (104) 99 98.1 Labs Laboratory Tests Test 03/09/19 12:09 03/09/19 12:45 White Blood Count 8.8 x10^3/uL (4.0-11.0) Red Blood Count 4.08 x10^6/uL (3.50-5.40) Hemoglobin 11.8 g/dL (12.0-15.5) Hematocrit 34.4 % (36.0-47.0) Mean Corpuscular Volume 85 fL (79-100) Mean Corpuscular Hemoglobin 29 pg (25-35) Mean Corpuscular Hemoglobin Concent 34 g/dL (31-37) Red Cell Distribution Width 13.8 % (11.5-14.5) Platelet Count 215 x10^3/uL (140-400) Neutrophils (%) (Auto) 69 % (31-73) Lymphocytes (%) (Auto) 24 % (24-48) Monocytes (%) (Auto) 5 % (0-9) Eosinophils (%) (Auto) 1 % (0-3) Basophils (%) (Auto) 0 % (0-3) Neutrophils # (Auto) 6.1 x10^3/uL (1.8-7.7) Lymphocytes # (Auto) 2.1 x10^3/uL (1.0-4.8) Monocytes # (Auto) 0.4 x10^3/uL (0.0-1.1) Eosinophils # (Auto) 0.1 x10^3/uL (0.0-0.7) Basophils # (Auto) 0.0 x10^3/uL (0.0-0.2) Sodium Level 137 mmol/L (136-145) Potassium Level 3.6 mmol/L (3.5-5.1) Chloride Level 104 mmol/L (98-107) Carbon Dioxide Level 22 mmol/L (21-32) Anion Gap 11 (6-14) Blood Urea Nitrogen 7 mg/dL (7-20) Creatinine 0.7 mg/dL (0.6-1.0) Estimated GFR (Cockcroft-Gault) 95.8 BUN/Creatinine Ratio 10 (6-20) Glucose Level 87 mg/dL (70-99) Calcium Level 9.1 mg/dL (8.5-10.1) Total Bilirubin 0.2 mg/dL (0.2-1.0) Aspartate Amino Transf (AST/SGOT) 17 U/L (15-37) Alanine Aminotransferase (ALT/SGPT) 19 U/L (14-59) Alkaline Phosphatase 84 U/L (46-116) Total Protein 7.5 g/dL (6.4-8.2) Albumin 3.4 g/dL (3.4-5.0) Albumin/Globulin Ratio 0.8 (1.0-1.7) Lipase 49 U/L (73-393) Urine Collection Type Unknown Urine Color Janell Urine Clarity Clear Urine pH 6.0 Urine Specific [place] >=1.030 Urine Protein Negative mg/dL (NEG-TRACE) Urine Glucose (UA) Negative mg/dL (NEG) Urine Ketones (Stick) Negative mg/dL (NEG) Urine Blood Negative (NEG) Urine Nitrite Negative (NEG) Urine Bilirubin Negative (NEG) Urine Urobilinogen Dipstick 0.2 mg/dL (0.2 mg/dL) Urine Leukocyte Esterase Negative (NEG) Urine RBC 1-2 /HPF (0-2) Urine WBC 1-4 /HPF (0-4) Urine Squamous Epithelial Cells Mod /LPF Urine Amorphous Sediment Present /HPF Urine Bacteria 0 /HPF (0-FEW) Urine Mucus Marked /LPF Urine Test Negative (NEG) Allergies Allergies Coded Allergies Type Severity Reaction Last Updated Verified diphenhydramine Allergy Intermediate Nausea and Vomiting 03/09/19 Yes doxycycline Allergy Intermediate NAUSEA, VOMITING 09/12/13 Yes ibuprofen Allergy Intermediate nose bleed 07/16/14 Yes adhesive Allergy Mild rash 03/09/19 Yes Disposition/Orders: D/C to Home DEMETRI CALDERÓN MD Mar 11, 2019 08:51
[2019-03-11] MEDS: NICOTINE 21MG PATCH. TD SCH (09:00)
[2019-03-11] MEDS: DICYCLOMINE HCL 10 MG CAPSULE PO SCH (09:00)
[2019-03-11] MEDS: PANTOPRAZOLE 40 MG TABLET.DR. PO SCH (09:24)
[2019-03-11] MEDS: FLUoxetine HCL 20 MG CAPSULE PO SCH (09:25)
[2019-03-11] MEDS: ONDANSETRON ODT 4 MG TAB.RAPDIS. PO SCH (09:25)
--- NOTE | 2019-03-11 10:09 | NUR ---
Discharge Note: ELISABETH SEGOVIA Discharge instructions and discharge home medications reviewed with Patient and a copy given. All questions have been answered and understanding verbalized. The following instructions and handouts were given: discharge instructions, education and follow up recommendations. Discontinued lines and drains: Peripheral IV discontinued intact. Patient discharged to Home or Self Care with Family Member via Ambulated off unit by RN.
--- NOTE | 2019-03-11 12:30 | RAD ---
Examination: NM HEPATOBILIARY SCAN WO EF History: Right upper quadrant pain for the past 4 days Comparison/Correlation: CT abdomen and pelvis with contrast 03/09/2019 Findings: 5.5 mCi technetium 99m Choletec was intravenously administered for purposes of repair of a scintigraphy. Uptake of radiotracer by liver is normal. Radiotracer is present within small bowel by about 20 minutes. Radiotracer is present within the gallbladder at 25 minutes. Moderate common hepatic duct distention is noted in the first 35 minutes but decreases significantly subsequently. No central intrahepatic biliary dilatation otherwise seen. Impression: No evidence of cholecystitis. Normal transit of radiotracer into the small bowel. Electronically signed by: Sunny Sims MD (03/11/2019 12:27 PM) [facility]
== END 2019-03-11 10:11 | disposition home or self-care (01) | DRG 446 ==
LOC: 5 SOUTH 10:42
PROVIDERS: ADMIT Family Medicine; ATTEND Family Medicine
DX: K80.20 Calculus of gallbladder without cholecystitis without obstruction (principal); K21.9 Gastro-esophageal reflux disease without esophagitis; K58.9 Irritable bowel syndrome, unspecified; F17.200 Nicotine dependence, unspecified, uncomplicated; F31.9 Bipolar disorder, unspecified; G89.4 Chronic pain syndrome; Z79.891 Long term (current) use of opiate analgesic; Z90.49 Acquired absence of other specified parts of digestive tract; Z79.899 Other long term (current) drug therapy; Z88.8 Allergy status to other drugs, medicaments and biological substances
CPT/HCPCS: 36415; 74177; 78226; 80053; 81001; 81025; 83690; 85025; 87040; 96374; A9537; J2270; J2405; J2543; J3010; J7030; Q0162; Q9966; Q9967; G0378

== ENCOUNTER → 2019-05-10 | Outpatient (CLI) | payer MEDICARE, OTHER ==
[~2019-05-10] MED LIST changes: +ESOM40CA PO; +GADOTERATE 7.5 MMOL/15ML VIAL. IVP ONE; +ZOLP5TAB PO
--- NOTE | 2019-05-10 11:47 | KCIC ---
MRI Brain with and without contrast History: Intractable headache, light sensitivity, worsening headaches, right sided headache Technique: Multiplanar, multi sequential pre and postcontrast MR imaging was performed of the brain. Comparison: July 16, 2014 Findings: There is some motion degradation. There is no evidence of recent infarct or cytotoxic edema. The ventricles, sulci, and cisterns are within normal limits in size and configuration. There is no significant midline shift, intraaxial mass effect, or focal abnormal extra-axial fluid collection. There is no new significant signal abnormality of the brain parenchyma. There is no nodular parenchymal or leptomeningeal enhancement. There is preservation of the major intracranial flow-voids at the skull base. The cerebellar tonsils are normal in location. There is no significant abnormality of the pineal gland or pituitary gland. There is again large right maxillary sinus mucous retention cyst about 2.5 cm. There is small left maxillary sinus mucous retention cyst 0.7 cm as seen previously. There is patchy minimal ethmoid air cell mucosal thickening greater anteriorly. The mastoid air cells are aerated. There is preserved marrow signal of the clivus. Impression: 1. There is no new significant intracranial abnormality. There are again bilateral maxillary sinus mucous retention cysts greater on the right. Electronically signed by: Lonny Magana MD (05/10/2019 11:24 AM) [id number]
== END | disposition home or self-care (01) ==
LOC: KCIC MRI 09:25
PROVIDERS: ATTEND Physician Assistant Medical
DX: J34.1 Cyst and mucocele of nose and nasal sinus (principal); G43.019 Migraine without aura, intractable, without status migrainosus
CPT/HCPCS: 70553; A9575

== ENCOUNTER 2020-06-02 10:29 | Emergency (ER) | payer MEDICARE, OTHER ==
[~2020-06-02] VITALS: Ht 162.6 cm; Wt 99.4 kg
[~2020-06-02 10:29] MED LIST changes: -GADOTERATE 7.5 MMOL/15ML VIAL. IVP ONE; +MIRT-36 PO; -MIRT15TA PO; +SUMA1TAB12 PO; -SUMA1TAB2 PO
[2020-06-02 11:20] LABS: BASO # 0.1 x10^3/uL (0.0-0.2); BASO % 1 % (0-3); EOS # 0.1 x10^3/uL (0.0-0.7); EOS % 2 % (0-3); HEMATOCRIT 34.7 % (36.0-47.0); HEMOGLOBIN 11.9 g/dL (12.0-15.5); LYMPH # 2.3 x10^3/uL (1.0-4.8); LYMPH % 29 % (24-48); MEAN CORPUSCULAR HEMOGLOBIN 29 pg (25-35); MEAN CORPUSCULAR HGB CONC 34 g/dL (31-37); MEAN CORPUSCULAR VOLUME 85 fL (79-100); MONO # 0.5 x10^3/uL (0.0-1.1); MONO % 7 % (0-9); NEUT # 4.8 x10^3/uL (1.8-7.7); NEUT % 61 % (31-73); PLATELET COUNT 210 x10^3/uL (140-400); RED BLOOD COUNT 4.08 x10^6/uL (3.50-5.40); RED CELL DISTRIBUTION WIDTH 13.1 % (11.5-14.5); WHITE BLOOD COUNT 7.7 x10^3/uL (4.0-11.0)
[2020-06-02 11:30] LABS: CREATININE 0.6 mg/dL (0.6-1.0); GFR 113.8
--- NOTE | 2020-06-02 11:35 | RAD ---
EXAM: XR CHEST 1V 06/02/2020 11:18 AM CLINICAL INDICATION: Chest pain COMPARISON: None TECHNIQUE: AP upright view of the chest FINDINGS: The heart and mediastinum are normal. Lungs are hypoexpanded. No consolidation, pleural ef fusion, or pneumothorax. No acute osseous abnormality. IMPRESSION: No acute cardiopulmonary abnormality. Electronically signed by: Rosio Leon MD (06/02/2020 11:33 AM) [id number]
[2020-06-02 11:37] LABS: ALBUMIN 3.4 g/dL (3.4-5.0); MAGNESIUM 2.1 mg/dL (1.8-2.4); TOTAL BILIRUBIN 0.2 mg/dL (0.2-1.0); TOTAL PROTEIN 6.9 g/dL (6.4-8.2)
--- NOTE | 2020-06-02 11:46 | ED.ADGEN ---
Past Medical History Past Medical History: Anxiety, Bipolar, DVT, GERD, IBS, Migraines, Ovarian Cyst, Pneumonia, Other Additional Past Medical Histor: OCD; back fracture, CHRONIC BACK PAIN Past Surgical History: Appendectomy, Other Additional Past Surgical Histo: ovarian cyst removal Smoking Status: Current Every Day Smoker Alcohol Use: None Drug Use: None General Adult EDM: Chief Complaint: COUGH HPI: HPI: Patient is a 34 year old female who presents emergency department with complaints of pain in her chest with inspiration and palpation for the last 3 days. Patient states she had upper respiratory infection that began 2 weeks ago. She was tested for Covid a week ago and tested negative. She denies any fever, shortness of breath, headache, body aches, fatigue, back pain, abdominal pain, nausea, vomiting, diarrhea, or sore throat at this time. Patient reports that she does smoke cigarettes but has not been smoking much lately due to her recent cough. Patient states she continues to have a infrequent dry cough. She reports that the pain is worse on the left side of her chest but she also does have reproducible pain on the right side of her chest. Patient reports a history of blood clots she denies any leg pain or swelling. She denies any palpitations. She currently rates her discomfort 7 out of 10 on the pain scale and describes it as a sharp stabbing sensation. Review of Systems: Review of Systems: Complete ROS is negative unless otherwise noted in HPI. Allergies: Allergies: Allergies Coded Allergies Type Severity Reaction Last Updated Verified diphenhydramine Allergy Intermediate Nausea and Vomiting 03/09/19 Yes doxycycline Allergy Intermediate NAUSEA, VOMITING 09/12/13 Yes ibuprofen Allergy Intermediate nose bleed 07/16/14 Yes adhesive Allergy Mild rash 03/09/19 Yes Physical Exam: PE: See Above Constitutional: Well developed, well nourished, no acute distress, non-toxic appearance, appears anxious. [] HENT: Normocephalic, atraumatic, bilateral external ears normal, nose normal. [] Eyes: PERRLA, EOMI, conjunctiva normal, no discharge. [] Neck: Normal range of motion, no stridor. [] Cardiovascular:Heart rate regular rhythm Lungs & Thorax: Respirations even and unlabored, no retractions, no respiratory distress Abdomen: soft, no tenderness Skin: Warm, dry, no erythema, no rash. [] Extremities: No cyanosis, ROM intact, no edema. [] Neurologic: Alert and oriented X 3, no focal deficits noted. [] Psychologic: Affect normal, judgement normal, mood normal. [] Current Patient Data: Labs: Laboratory Tests Test 06/02/20 10:55 White Blood Count 7.7 x10^3/uL (4.0-11.0) Red Blood Count 4.08 x10^6/uL (3.50-5.40) Hemoglobin 11.9 g/dL (12.0-15.5) L Hematocrit 34.7 % (36.0-47.0) L Mean Corpuscular Volume 85 fL (79-100) Mean Corpuscular Hemoglobin 29 pg (25-35) Mean Corpuscular Hemoglobin Concent 34 g/dL (31-37) Red Cell Distribution Width 13.1 % (11.5-14.5) Platelet Count 210 x10^3/uL (140-400) Neutrophils (%) (Auto) 61 % (31-73) Lymphocytes (%) (Auto) 29 % (24-48) Monocytes (%) (Auto) 7 % (0-9) Eosinophils (%) (Auto) 2 % (0-3) Basophils (%) (Auto) 1 % (0-3) Neutrophils # (Auto) 4.8 x10^3/uL (1.8-7.7) Lymphocytes # (Auto) 2.3 x10^3/uL (1.0-4.8) Monocytes # (Auto) 0.5 x10^3/uL (0.0-1.1) Eosinophils # (Auto) 0.1 x10^3/uL (0.0-0.7) Basophils # (Auto) 0.1 x10^3/uL (0.0-0.2) D-Dimer (Ora) 0.32 ug/mlFEU (0.00-0.50) Sodium Level 139 mmol/L (136-145) Potassium Level 4.0 mmol/L (3.5-5.1) Chloride Level 105 mmol/L (98-107) Carbon Dioxide Level 21 mmol/L (21-32) Anion Gap 13 (6-14) Blood Urea Nitrogen 12 mg/dL (7-20) Creatinine 0.6 mg/dL (0.6-1.0) Estimated GFR (Cockcroft-Gault) 113.8 BUN/Creatinine Ratio 20 (6-20) Glucose Level 126 mg/dL (70-99) H Calcium Level 9.0 mg/dL (8.5-10.1) Magnesium Level 2.1 mg/dL (1.8-2.4) Total Bilirubin 0.2 mg/dL (0.2-1.0) Aspartate Amino Transferase (AST) 25 U/L (15-37) Alanine Aminotransferase (ALT) 23 U/L (14-59) Alkaline Phosphatase 96 U/L (46-116) Creatine Kinase 64 U/L (26-192) Creatine Kinase MB (Mass) 0.3 ng/mL (0.0-3.6) Creatine Kinase MB Relative Index % (0-4) Troponin I Quantitative < 0.017 ng/mL (0.000-0.055) Total Protein 6.9 g/dL (6.4-8.2) Albumin 3.4 g/dL (3.4-5.0) Albumin/Globulin Ratio 1.0 (1.0-1.7) Lipase 58 U/L (73-393) L Laboratory Tests 06/02/20 10:55 Laboratory Tests 06/02/20 10:55 Vital Signs: Vital Signs Date Time Temp Pulse Resp B/P (MAP) Pulse Ox O2 Delivery O2 Flow Rate FiO2 06/02/20 10:38 98.1 113 20 125/77 (93) 99 Room Air 98.1 EKG: EK- sinus tachycardia rate 107, NO STEMI read by Dr. Titus. [] Heart Score: Risk Factors: Risk Factors: DM, Current or recent (<one month) smoker, HTN, HLP, family history of CAD, obesity. Risk Scores: Score 0 - 3: 2.5% MACE over next 6 weeks - Discharge Home Score 4 - 6: 20.3% MACE over next 6 weeks - Admit for Clinical Observation Score 7 - 10: 72.7% MACE over next 6 weeks - Early Invasive Strategies Radiology/Procedures: Radiology/Procedures: PROCEDURE: CHEST AP ONLY EXAM: XR CHEST 1V 06/02/2020 11:18 AM CLINICAL INDICATION: Chest pain COMPARISON: None TECHNIQUE: AP upright view of the chest FINDINGS: The heart and mediastinum are normal. Lungs are hypoexpanded. No consolidation, pleural effusion, or pneumothorax. No acute osseous abnormality. IMPRESSION: No acute cardiopulmonary abnormality. [] Course & Med Decision Making: Course & Med Decision Making Pertinent Labs and Imaging studies reviewed. (See chart for details) 34-year-old female presents emergency department with complaints of reproducible chest pain for the last 3 days. Patient reported a history of blood clots. Work-up included labs, EKG, and chest x-ray. CBC revealed mild anemia with hemoglobin 11.9, hematocrit of 34.7;D-dimer was within normal limits at 0.32; CMP revealed glucose of 126 otherwise unremarkable. The patient's CK index and troponin were all negative. Chest x-ray was unremarkable. EKG was sinus tachycardia otherwise normal, no STEMI Patient's vital signs are stable throughout her visit, her oxygen saturation fluctuated between 96 to 99% on room air. The patient reported that she has an albuterol inhaler at home that she can use for the intermittent shortness of eleanor ath that she experiences. Prescription written for naproxen 500 mg p.o. twice daily x10 days. Patient states she tolerates naproxen even though she is unable to take ibuprofen. Patient was encouraged to increase clear fluids and avoid exposure to airway irritants I also encouraged her to stop smoking. Patient was instructed to return to the ER if her symptoms worsen otherwise follow-up with her primary care doctor next week. Patient verbalized an understanding of home care, medications, follow-up, and return to ED instructions and was in agreement with the plan of care. I have reviewed the PA/BUILDING SUPERVISOR's note and Plan of Care. I was available for consultation as needed during the patient's visit in the emergency department. I agree with the clinical impression, plans and disposition. Carlos Eduardo Disclaimer: Carlos Eduardo Disclaimer: This electronic medical record was generated, in whole or in part, using a voice recognition dictation system. Departure Departure Impression: Primary Impression: Acute costochondritis Disposition: 01 DC HOME SELF CARE/HOMELESS Condition: STABLE Referrals: STEPHANI SEGOVIA MD (PCP) Patient Instructions: Costochondritis, [id number] Additional Instructions: Fill prescription(s) and use as directed. Recommend use of a Cool mist humidi fier in room at bedtime. You may also take Tylenol as needed for pain/fever. Increase clear fluids. Avoid airway triggers such as smoke, fragrance, dust, and pollen. May take [id number] cough suppressants as needed. Continue to use her albuterol inhaler as needed for shortness of breath. Follow-up with your primary care doctor in 1 to 2 days, return to the ER if symptoms worsen or fever develops. Scripts Naproxen (NAPROXEN) 500 Mg Tablet 1 TAB PO BID PRN for PAIN for 10 Days, #20 TAB 0 Refills Prov: KETURAH HUTTON APRN 06/02/20 KETURAH HUTTON APRN Jun 02, 2020 11:46 LEE TITUS MD Jun 02, 2020 12:25
[2020-06-02 11:49] LABS: CREATINE KINASE 64 U/L (26-192)
[2020-06-02 12:00] VITALS: BP 105/69
[2020-06-02] MEDS ORDERED: NAPR-514 PO (12:10)
[2020-06-02 12:32] LABS: BILIRUBIN,URINE NEGATIVE (NEG); CLARITY,URINE CLOUDY; COLOR,URINE YELLOW; NITRITE,URINE NEGATIVE (NEG); PROTEIN,URINE NEGATIVE (NEG-TRACE)
[2020-06-02 12:57] LABS: AMORPHOUS SEDIMENT,UR PRESENT /HPF; BACTERIA,URINE MODERATE /HPF (0-FEW); RBC,URINE OCC /HPF (0-2); WBC,URINE 0 /HPF (0-4)
--- NOTE | 2020-06-02 15:48 | EKG ---
[facility] [address] [place] [address] Test Date: 2020-06-02 Test Time: 10:47:00 Pat Name: KIARA SEGOVIA Department: Room: Gender: F Director [employer]: : 1985 Requested By: KETURAH HUTTON Order Number: [id number] Reading MD: Measurements Intervals [place] Rate: 107 P: 20 FL: 156 QRS: 30 QRSD: 70 T: 52 QT: 364 QTc: 492 Interpretive Statements SINUS TACHYCARDIA OTHERWISE NORMAL ECG RI6.02 No previous ECG available for comparison
== END 2020-06-02 12:23 | disposition home or self-care (01) ==
LOC: ER 10:29
DX: M94.0 Chondrocostal junction syndrome [Tietze] (principal); F31.9 Bipolar disorder, unspecified; K21.9 Gastro-esophageal reflux disease without esophagitis; K58.9 Irritable bowel syndrome, unspecified; G43.909 Migraine, unspecified, not intractable, without status migrainosus; G89.29 Other chronic pain; F42.9 Obsessive-compulsive disorder, unspecified; Z86.73 Personal history of transient ischemic attack (TIA), and cerebral infarction without residual deficits; F17.200 Nicotine dependence, unspecified, uncomplicated; Z88.5 Allergy status to narcotic agent; Z88.1 Allergy status to other antibiotic agents; Z88.8 Allergy status to other drugs, medicaments and biological substances
CPT/HCPCS: 36415; 71045; 80053; 81001; 82553; 83690; 83735; 84484; 85025; 85379; 87086; 93005; 99285-25